=== PATIENT | female | born 1985 ===

== ENCOUNTER 2017-08-15 14:38 | Emergency (ER) | payer MEDICAID ==
[2017-08-15 15:01] VITALS: BMI 19.8
[2017-08-15 15:09] VITALS: BP 106/60; PULSE 71; RESP 18; TEMP 97.5; O2SAT 100
[2017-08-15] MEDS ORDERED: TDAP Vaccine 0.5 mL Syr IM ONE (15:27)
[2017-08-15] MEDS ORDERED: Silver Sulfadiazine 1% Cream (25 gm) TP STA (15:27)
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
== END 2017-08-15 16:30 | disposition home or self-care (01) ==
LOC: ED 14:38
DX: T25.221A Burn of second degree of right foot, initial encounter (principal); X10.0XXA Contact with hot drinks, initial encounter; Z23 Encounter for immunization
CPT/HCPCS: 90471; 90715; 96372; 99284; J1885